=== PATIENT | female | born 1995 | race American Indian/Alaskan Native ===

== ENCOUNTER 2018-07-10 11:21 | Emergency (ER) | payer SELFPAY ==
--- NOTE | 2018-07-10 15:04 | Emergency Department Report ---
ED Female HPI - General Chief complaint: Urogenital-Female Stated complaint: STI Time Seen by Provider: 07/10/18 14:12 Source: patient Mode of arrival: Ambulatory Limitations: No Limitations - History of Present Illness Initial comments: 22-year-old female patient is to ED with complaints of vaginal discharge with odor. She states she was diagnosed with chlamydia several weeks ago, was given medication for treatment, however reports no improvement of symptoms. MD Complaint: vaginal discharge -: week(s) (2) Severity: mild Consistency: intermittent Improves with: none Worsens with: none Associated Symptoms: vaginal discharge. denies: dysuria - Related Data Allergies Allergy/AdvReac Type Severity Reaction Status Date / Time No Known Allergies Allergy Unverified 07/10/18 11:41 ED Review of Systems ROS: Stated complaint: STI Other details as noted in HPI Comment: All other systems reviewed and negative Constitutional: denies: chills Gastrointestinal: denies: abdominal pain, nausea, vomiting Genitourinary: discharge ED Past Medical Hx - Past Medical History Previous Medical History?: No - Surgical History Past Surgical History?: No - Social History Smoking Status: Never Smoker Substance Use Type: None ED Physical Exam - General Limitations: No Limitations General appearance: alert, in no apparent distress - Head Head exam: Present: atraumatic, normocephalic - Eye Eye exam: Present: normal appearance - ENT ENT exam: Present: mucous membranes moist - Neck Neck exam: Present: normal inspection - Respiratory Respiratory exam: Present: normal lung sounds bilaterally. Absent: respiratory distress - Cardiovascular Cardiovascular Exam: Present: regular rate, normal rhythm - GI/Abdominal GI/Abdominal exam: Present: soft. Absent: tenderness - External exam: Present: normal external exam Speculum exam: Present: vaginal discharge, cervical discharge, other (foul smell present) Bi-manual exam: Present: normal bi-manual exam. Absent: cervical motion tendernes, adnexal tenderness - Extremities Exam Extremities exam: Present: normal inspection - Neurological Exam Neurological exam: Present: alert, oriented X3 - Psychiatric Psychiatric exam: Present: normal affect, normal mood - Skin Skin exam: Present: warm, dry, intact, normal color ED Course Vital Signs 07/10/18 07/10/18 11:38 15:55 Temperature 98.8 F 98.3 F Pulse Rate 66 82 Respiratory 16 18 Rate Blood Pressure 126/79 Blood Pressure 118/60 [Left] O2 Sat by Pulse 96 100 Oximetry ED Medical Decision Making - Medical Decision Making 32-year-old female with vaginal discharge. No cervical motion tenderness on exam, no signs of PID. Wet prep positive for bacterial vaginosis and Trichomonas. We'll treat with Flagyl and also prophylactically treated for gonorrhea and chlamydia. - Differential Diagnosis chlamydia, gonorrhea, yeast, bacterial vaginosis, trichomonas Critical care attestation.: If time is entered above; I have spent that time in minutes in the direct care of this critically ill patient, excluding procedure time. ED Disposition Clinical Impression: Cervicitis, Trichomonosis, Bacterial vaginosis Disposition: TO HOME OR SELFCARE Is pt being admited?: No Condition: Stable Instructions: Bacterial Vaginosis (ED), Cervicitis (ED), Trichomoniasis (ED) Referrals: PRIMARY CARE, [Primary Care Provider] - 3-5 Days Forms: STI Treatment and Prevention Time of Disposition: 15:35
[2018-07-10] MEDS ORDERED: XYLOCAINE 1% MPF 5 mL INFILTRATI ONE (15:28)
[2018-07-10] MEDS ORDERED: ZITHROMAX PO ONE (15:28)
[2018-07-10] MEDS ORDERED: ROCEPHIN IM ONE (15:28)
[2018-07-10] MEDS ORDERED: FLAGYL PO ONE (15:32)
[2018-07-10 15:56] VITALS: BP 118/60
== END 2018-07-10 16:26 | disposition home or self-care (01) ==
LOC: ED 11:21
DX: N76.0 Acute vaginitis (principal); A59.9 Trichomoniasis, unspecified; N72 Inflammatory disease of cervix uteri; B96.89 Other specified bacterial agents as the cause of diseases classified elsewhere
CPT/HCPCS: 87210; 87591; 96372; 99283; J0696